=== PATIENT | female | born 1995 | race Caucasian/White ===

== ENCOUNTER 2016-10-26 03:31 | Emergency (ER) | payer BC ==
[~2016-10-26] VITALS: Ht 172.7 cm; Wt 86.4 kg
[2016-10-26 03:35] VITALS: TEMP 97.7
[2016-10-26] MEDS ORDERED: BUSPIRONE HCL7.5 MG PO (03:39)
[2016-10-26] MEDS ORDERED: ALDACTONE 100M100 MG PO (03:39)
[2016-10-26] MEDS ORDERED: WELLBUTRIN 75MG75 MG PO (03:40)
[2016-10-26 04:12] LABS: PH 5 (5-8); URINE APPEARANCE Cloudy; URINE BACTERIA Rare /hpf; URINE BILIRUBIN Negative (NEGATIVE); URINE BLOOD 3+ (NEGATIVE); URINE COLOR Yellow; URINE GLUCOSE Negative (NEGATIVE); URINE KETONE Negative (NEGATIVE); URINE RBC >50 /hpf; URINE UROBILINOGEN Negative (NEGATIVE); URINE WBC >50 /hpf
[2016-10-26] MEDS ORDERED: PYRIDIUM200 M1 PO (05:04)
[2016-10-26] MEDS ORDERED: MACROBID 1100 MG/CAP PO (05:04)
[2016-10-26 05:38] VITALS: BP 125/71; PULSE 80
[2016-10-26 09:38] LABS: CHLAMYDIA/TRACH by PCR Female NOT DETECTED; NEISSERIA GON by PCR Female NOT DETECTED
== END 2016-10-26 05:38 | disposition home or self-care (01) ==
LOC: COL.ER 03:31
PROVIDERS: Emergency Medicine
DX: N39.0 Urinary tract infection, site not specified (principal); N89.8 Other specified noninflammatory disorders of vagina
CPT/HCPCS: J0696

== ENCOUNTER 2021-09-29 13:14 | Emergency (ER) | payer BC ==
[~2021-09-29] VITALS: Ht 175.3 cm; Wt 83.2 kg
[~2021-09-29 13:14] MED LIST: ALDACTONE 100M100 MG PO; BUSPIRONE HCL7.5 MG PO; MACROBID 1100 MG/CAP PO; PYRIDIUM200 M1 PO; WELLBUTRIN 75MG75 MG PO
[2021-09-29 13:22] VITALS: TEMP 98.6
[2021-09-29] MEDS ORDERED: ADDERALL XR15 MG PO (13:28)
[2021-09-29] MEDS ORDERED: NIKKI1 TAB PO (13:28)
[2021-09-29 13:44] LABS: COLLECTION METHOD CLEAN CATCH
[2021-09-29 13:48] LABS: BASO % 0.5 % (0.0-2.0); EOS # 0.1 K/mm3 (0.0-0.7); EOS % 0.9 % (0.0-4.0); GRAN % 54.5 % (42.2-75.2); HEMATOCRIT 41.5 % (37.0-47.0); HEMOGLOBIN 14.1 g/dl (12.5-16.0); LYMPH # 2.2 K/mm3 (1.2-3.4); LYMPH % 38.9 % (20.0-51.0); MEAN CELL VOLUME 90 fl (80.0-100.0); MEAN CORPUSCULAR HEMOGLOBIN 31 pg (27-31); MEAN CORPUSCULAR HGB CONC 34 g/dl (33.0-37.0); MEAN PLATELET VOLUME 11.3 fl (7.4-10.4); MONO # 0.3 K/mm3 (0.1-0.6); PLATELET COUNT 248 K/mm3 (130-400); RED BLOOD COUNT 4.62 M/mm3 (4.10-5.30); REDCELL DISTRIBUTION WIDTH-CV 12.2 % (11.5-14.5)
[2021-09-29 13:56] LABS: MUCOUS Present (NOT PRESENT); PH 6 (5-8); URINE APPEARANCE Cloudy (CLEAR/HAZY); URINE BACTERIA Rare /hpf (NONE SEEN); URINE BILIRUBIN Negative (NEGATIVE); URINE BLOOD Negative (NEGATIVE); URINE COLOR Yellow (YELLOW); URINE GLUCOSE Negative (NEGATIVE); URINE KETONE Negative (NEGATIVE); URINE LEUKOCYTE ESTERASE 1+ (NEGATIVE); URINE NITRATE Negative (NEGATIVE); URINE PROTEIN(semi-quant) Negative (NEGATIVE); URINE UROBILINOGEN Negative (NEGATIVE)
[2021-09-29 14:03] LABS: ALBUMIN 3.9 gm/dL (3.5-5.0); BILIRUBIN,TOTAL 0.7 mg/dL (0.2-1.2); CREATININE, serum 0.81 mg/dL (0.57-1.11); POTASSIUM 4.1 mmol/L (3.5-4.5); TOTAL PROTEIN 7.4 gm/dL (6.2-8.1)
[2021-09-29] MEDS ORDERED: MACROBID 1100 MG/CAP PO (14:11)
[2021-09-29] MEDS ORDERED: BENTYL 20MG20 MG/TAB PO (14:24)
[2021-09-29 14:56] VITALS: BP 113/85; PULSE 89
== END 2021-09-29 14:56 | disposition home or self-care (01) ==
LOC: COL.ER 13:14
PROVIDERS: Physician Assistant
DX: N39.0 Urinary tract infection, site not specified (principal); G89.29 Other chronic pain; F90.9 Attention-deficit hyperactivity disorder, unspecified type; Z79.899 Other long term (current) drug therapy
CPT/HCPCS: J0500

== ENCOUNTER 2021-10-12 20:43 | Emergency (ER) | payer BC ==
[~2021-10-12] VITALS: Ht 175.3 cm; Wt 81.8 kg
[~2021-10-12 20:43] MED LIST changes: +ADDERALL XR15 MG PO; +BENTYL 20MG20 MG/TAB PO; +NIKKI1 TAB PO
[2021-10-12 21:28] LABS: BASO % 0.5 % (0.0-2.0); EOS # 0.1 K/mm3 (0.0-0.7); EOS % 1.8 % (0.0-4.0); HEMATOCRIT 39.7 % (37.0-47.0); HEMOGLOBIN 13.4 g/dl (12.5-16.0); LYMPH # 3.1 K/mm3 (1.2-3.4); LYMPH % 55.7 % (20.0-51.0); MEAN CELL VOLUME 90 fl (80.0-100.0); MEAN CORPUSCULAR HEMOGLOBIN 30 pg (27-31); MEAN CORPUSCULAR HGB CONC 34 g/dl (33.0-37.0); MEAN PLATELET VOLUME 11.4 fl (7.4-10.4); MONO # 0.3 K/mm3 (0.1-0.6); MONO % 5.8 % (1.7-9.3); PLATELET COUNT 230 K/mm3 (130-400); RED BLOOD COUNT 4.42 M/mm3 (4.10-5.30); REDCELL DISTRIBUTION WIDTH-CV 11.9 % (11.5-14.5)
[2021-10-12 21:48] LABS: ALANINE AMINOTRANSFERASE 23 U/L (0-55); ALBUMIN 3.7 gm/dL (3.5-5.0); ALKALINE PHOSPHATASE 47 U/L (40-150); ANION GAP 12 mmol/L (7-16); AST,SGOT 15 U/L (5-34); BILIRUBIN,TOTAL 0.3 mg/dL (0.2-1.2); BLOOD UREA NITROGEN 12 mg/dL (7-19); CALCIUM 8.8 mg/dL (8.4-10.2); CARBON DIOXIDE 23 mmol/L (22-29); CHLORIDE 108 mmol/L (98-107); GLUCOSE 105 mg/dL (70-99); POTASSIUM 3.8 mmol/L (3.5-4.5); SODIUM 143 mmol/L (136-145); TOTAL PROTEIN 7.3 gm/dL (6.2-8.1)
[2021-10-12 21:57] LABS: TROPONIN-I < 0.010 ng/mL (0.00-0.033)
[2021-10-12 22:53] VITALS: BP 116/79; PULSE 75; TEMP 97.8
== END 2021-10-12 22:41 | disposition home or self-care (01) ==
LOC: COL.ER 20:43
PROVIDERS: Emergency Medicine
DX: R07.89 Other chest pain (principal)

== ENCOUNTER 2023-09-11 05:11 | Emergency (ER) | payer SELFPAY ==
[~2023-09-11] VITALS: Ht 172.7 cm; Wt 87.7 kg
[2023-09-11 05:19] VITALS: TEMP 98.7
[2023-09-11 05:45] LABS: BASO % 0.5 % (0.0-2.0); EOS % 0.7 % (0.0-4.0); GRAN # 3.3 K/mm3 (1.4-6.5); GRAN % 56.7 % (42.2-75.2); HEMATOCRIT 41.4 % (37.0-47.0); HEMOGLOBIN 14.2 g/dl (12.5-16.0); LYMPH # 2.1 K/mm3 (1.2-3.4); LYMPH % 35.3 % (20.0-51.0); MEAN CELL VOLUME 91 fl (80.0-100.0); MEAN CORPUSCULAR HEMOGLOBIN 31 pg (27-31); MEAN CORPUSCULAR HGB CONC 34 g/dl (33.0-37.0); MEAN PLATELET VOLUME 11.1 fl (7.4-10.4); MONO # 0.4 K/mm3 (0.1-0.6); MONO % 6.6 % (1.7-9.3); PLATELET COUNT 244 K/mm3 (130-400); RED BLOOD COUNT 4.55 M/mm3 (4.10-5.30); REDCELL DISTRIBUTION WIDTH-CV 11.9 % (11.5-14.5)
[2023-09-11] MEDS ORDERED: LR 1,000 ML IV ONE (05:45)
[2023-09-11 06:05] LABS: LIPASE 57 U/L (8-78)
[2023-09-11 06:12] LABS: TROPONIN-I < 0.010 ng/mL (0.00-0.033)
[2023-09-11 07:22] LABS: ALBUMIN 3.8 g/dL (3.5-5.0); BILIRUBIN,TOTAL 0.6 mg/dL (0.2-1.2); CALCIUM 9.6 mg/dL (8.4-10.2); CREATININE, serum 0.84 mg/dL (0.57-1.11); TOTAL PROTEIN 7.5 g/dl (6.2-8.1)
[2023-09-11 07:29] VITALS: BP 119/82; PULSE 69
== END 2023-09-11 07:38 | disposition home or self-care (01) ==
LOC: COL.ER 05:11
PROVIDERS: Emergency Medicine
DX: K92.2 Gastrointestinal hemorrhage, unspecified (principal)
CPT/HCPCS: J7120